=== PATIENT | female | born 2000 | race Hispanic/Latino ===

== ENCOUNTER 2020-08-02 20:57 | Day surgery (SDC) | payer OTHER ==
[2020-08-02 21:24] VITALS: BMI 28.3
[2020-08-02] MEDS ORDERED: hydrALAZINE 20 MG/ML VIAL SLOW IVP PRN ×2 (21:50→21:51)
--- NOTE | 2020-08-02 21:53 | PDOC.FPROB ---
FMR OB H&P: HPI - History of Present Illness Chief Complaint: CTX Indentification: 20yo [id number] at 39.5wks History of Present Illness: 20yo [id number] at 39.5wks presents for contractions that started this morning. Have become more intense and closer together which is why she came in. Endorses scant amt of spotting. Denies LOF, vision changes, edema, PALENCIA. Also reports decreased movement from her normal. Reports dysuria. Has only had 2 bottles of water today. Primary Care Physician: Dr Jade FMR OB H&P: Current - Care : 2 Para: 0010 Gestational age: 39.5wks Due date: 08/04/20 Course/Complications: Denies - OB Labs Blood type: O RH: positive Antibody Screen: negative HIV: negative RPR: negative HepBsAg: negative Rubella: non-immune Urine drug screen: not done 1 hour gtt: 138 GBS: negative FMR OB H&P: History - Past Medical History PMH: Unremarkable - OB History OB History: SAB at 8wks - [employer] History [employer] History: Denies - Surgical History Sx History: Denies - Social History Social History: Denies tobacco, alcohol or drug use. - Family History Family History: Noncontributory FMR OB H&P: Medications - Current Allergies/Adverse Reactions: Allergies Allergy/AdvReac Type Severity Reaction Status Date / Time No Known Allergies Allergy Verified 08/02/20 21:18 FMR OB H&P: ROS - Review of Systems General: denies: fever/chills, fatigue Eyes: denies: vision changes, double vision, scotomas, floaters ENT: denies: nasal congestion, rhinorrhea Cardiovascular: denies: chest pain, edema Respiratory: denies: cough, congestion, shortness of breath Gastrointestinal: denies: nausea, vomiting Genitourinary (Female): reports: dysuria, contractions Musculoskeletal: denies: pain, swelling Neurologic: denies: weakness, headache Integumentary: denies: itching, rash FMR OB H&P: Vital Signs - Heart Tones Baseline: 140 Variability: moderate Acceleration: present Deceleration: absent Category: category 1 M[place]urtain contractions every: 5min FMR OB H&P: Physical Exam - Physical Exam General: NAD, awake, alert and oriented HEENT: normocephalic and atraumatic, conjunctiva clear, grossly normal hearing, oropharynx clear Neck: supple, trachea midline Heart: RRR, no murmurs/rubs/gallops, no edema General: CTAB, no respiratory distress, no rales/rhonchi, no wheezing Abdomen: soft, gravid, non-tender Musculoskeletal: pulses present, no misalignment/asymmetry, no atrophy Neurological: no focal deficit Skin: good tugor, no jaundice Lymphatic: no unusual bruising or bleeding Psychiatric: intact recent and remote memory, good judgement and insight, normal mood and affect - Pelvic Exam Vulva: normal hair distribution, no lesions SVE: /-3 FMR OB H&P: A/P Disposition: 20yo [id number] at 39.5wks presents for contractions sIUP - SVE unchanged from 07/29 /-2 - Reports decreased FM, FHTs reassuring Cat 1. Will check UA via straight cath as she has complaint of dysuria. Encouraged PO hydration. Will also give 1g Tylenol for pain. Rubella non-immune - MMR Discussion: Date/Time: 08/02/202150 This H&P was discussed with Dr. Dias who agrees with the above documentation and plan. Agree. Patient seen. H&P dictated. Meds: vitamins
--- NOTE | 2020-08-02 22:01 | PDOC.BPN ---
- Brief Progress Note OBGYN: NST reviewed. Ordered for decreased FM. Initially reactive now with possible sleep cycle...will follow. If needed we will check BPP. Cath UA ordered for dysuria. CX 2cm at 39 weeks See H&P from Terrance, and my dictated report
[2020-08-02] MEDS ORDERED: Acetaminophen 500 MG TAB PO SCH (22:15)
[2020-08-02 22:18] LABS: Bacteria/HPF None Seen HPF (None Seen); Bilirubin Negative (Negative); Blood, Urine Negative (Negative); Clarity Clear (Clear); Glucose, Urine (Dipstick) Normal (Negative); Ketone, Urine Negative (Negative); Leukocyte Negative Leu/uL (Negative); Nitrite Negative (Negative); Protein, Urine (Dipstick) 10 mg/dL (Neg-Trace); RBC/HPF 0-3 HPF (0-3); Specific Gravity, Urine 1.024 (1.002-1.036); Squamous Epithelial 0-3 HPF (0-3); WBC/HPF 0-3 HPF (0-3)
[2020-08-02 22:19] LABS: Urine Culture Reflex No No
--- NOTE | 2020-08-02 22:33 | HP ---
TIME OF EVALUATION: Roughly, 2139. It is 2155 now. LOCATION: Labor Delivery Triage B. Patient of Dr. Jade. CHIEF COMPLAINT: 1. Painful urination. 2. Decreased movement. 3. Possible contractions. HISTORY OF PRESENT ILLNESS: This is a 20-year-old G1 who is at 39 weeks and 5 days with irregular contractions. She was seen in Labor and Delivery on Wednesday earlier this week and was 2 cm. She denies vaginal bleeding or leakage of fluid. She also states some possible burning on urination, but denies any fevers, frequency, or chills. She had some decreased movement, but is moving now since arrival. She has no vaginal bleeding or leakage of fluid. She denies any other sick contacts or issues. REVIEW OF SYSTEMS: Complete review of systems was checked and is otherwise negative unless specified in the HPI. GENERAL: She denies fever, trauma, or shortness of breath. RESPIRATORY: No cough. No shortness of breath. CHEST: No chest pain. GI: No constipation or diarrhea. : Possible burning on urination, OB: Good movement, but it had been decreased recently, now better. EXTREMITIES: No abnormal loss of sensation or strength. PAST MEDICAL HISTORY: None. SURGICAL HISTORY: Noncontributory. ALLERGIES: NONE. SOCIAL HISTORY: Negative for alcohol, tobacco, and drug use. MEDICATION: Includes vitamins. PHYSICAL EXAMINATION: GENERAL: She is in no acute distress, and she is alert and oriented. VITAL SIGNS: Stable and she is afebrile. Her blood pressure is 111/71, heart rate of 99, respirations 16, temperature is 98.2. ABDOMEN: Soft and nontender. On perineal inspection, no gross evidence of bleeding or no gross evidence of ruptured membranes. Cervical exam is 2 cm dilation, 50% effacement, -3 station. Bag of water is intact. On external monitor, heart tones were reviewed on the nonstress test. Nonstress test shows heart rate around 140s to 150s with moderate variability and no pathological decelerations. There are some contractions on tocodynamometer, but they are irregular about every 3 to 5 minutes or so. She did have better accelerations when she first arrived, and now the baby is probably undergoing a sleep cycle because there is some decreased variability. Overall, it was reassuring on first arrival and now possibly a sleep cycle. We will continue to monitor. LABORATORY DATA: Labs ordered. We have ordered a cath urine analysis. ASSESSMENT: This is a 20-year-old, G1, P0, at 39 weeks and 5 days with possible latent labor, possible urinary tract infection, some decreased movement. PLAN: 1. The nonstress test was initially reactive. It now looks like a sleep cycle, so we will continue to follow. If the NST becomes more indeterminate with decrease in accelerations, we may continue the evaluation with a biophysical profile. For now, we will hold off to see what the strip looks like. 2. I have ordered a cath UA. 3. We will do 2-hour obs to see if she changes her cervix. 4. If there is no evidence of acute maternal compromise or of active labor, we will send the patient home to follow up no later than Wednesday for recheck. Job ID: [id number]
--- NOTE | 2020-08-02 23:18 | PDOC.BPN ---
- Brief Progress Note Dispo: UA is clear. If no CX change, we can send her home as Vitals wnl and NST reactive
== END 2020-08-02 23:41 | disposition home or self-care (01) ==
LOC: L&D/OP 20:57
PROVIDERS: ATTEND Family Medicine
DX: O47.1 False labor at or after 37 completed weeks of gestation (principal); O36.8130 Decreased fetal movements, third trimester, not applicable or unspecified; O99.891 Other specified diseases and conditions complicating pregnancy; R30.0 Dysuria; O26.853 Spotting complicating pregnancy, third trimester; Z3A.39 39 weeks gestation of pregnancy
CPT/HCPCS: 81001; 99283

== ENCOUNTER 2020-08-03 09:02 | Inpatient (IN) | payer OTHER ==
[2020-08-03 09:30] VITALS: BMI 28.3
[2020-08-03] MEDS ORDERED: Ondansetron PF 4 MG/2 ML Vial IVP PRN ×4 (09:45→16:03)
[2020-08-03] MEDS ORDERED: Lidocaine 1% (PF) 30 ML VIAL SC PRN (09:45)
[2020-08-03] MEDS ORDERED: NS w/ Oxytocin 10 units 500 ML IV SCH (09:45)
[2020-08-03] MEDS ORDERED: NS / Oxytocin 40 units/1000ml 1,000 ML IV PRN (09:45)
[2020-08-03] MEDS ORDERED: hydrALAZINE 20 MG/ML VIAL SLOW IVP PRN (09:45)
[2020-08-03] MEDS ORDERED: Promethazine HCl 25 MG/ML VIAL IM PRN ×4 (09:45→16:03)
[2020-08-03] MEDS ORDERED: Acetaminophen 500 MG TAB PO PRN (09:51)
[2020-08-03] MEDS ORDERED: Butorphanol Tartrate 1 MG/ML VIAL SLOW IVP PRN (09:51)
[2020-08-03] MEDS ORDERED: DISCONTINUE ALL PREVIOUS NARCOTICS FS SCH (10:30)
[2020-08-03] MEDS ORDERED: Bupivacaine 0.5% 20 ML, fentaNYL Citrate/PF 400 MCG in Sodium Chloride 0.9% 72 ML EPIDURAL SCH (10:30)
[2020-08-03 10:47] LABS: Hemoglobin 11.6 g/dL (12.0-16.0); Mean Corpuscular HGB CONC 33.1 g/dL (32.0-36.0); Mean Corpuscular Hemoglobin 27.8 pg (27.0-31.0); Mean Platelet Volume 10.9 fL (7.4-10.4); Platelet Count 145 thou/uL (130-400); RBC Distribution Width 17.6 % (11.5-14.5); Red Blood Cell (RBC) Count 4.19 mill/uL (4.20-5.40); White Blood Cell (WBC) Count 9.7 thou/uL (4.8-10.8)
[2020-08-03 11:25] LABS: Syphilis Antibody Nonreactive (Nonreactive); Syphilis Antibody Index 0.05 S/CO (<1.00 Non-Reactive)
[2020-08-03 11:26] LABS: HBSAg Index 0.18 S/CO (0-0.99); Hep B Surf Ag Non-Reactive S/CO (NonReactive)
[2020-08-03] MEDS ORDERED: diphenhydrAMINE 50 MG/ML VIAL IVP PRN ×2 (12:31→12:37)
[2020-08-03] MEDS ORDERED: Acetaminophen 325 MG TAB PO PRN ×2 (12:31→12:36)
[2020-08-03] MEDS ORDERED: ePHEDrine 50 MG/ML VIAL SLOW IVP PRN ×2 (12:31→12:37)
[2020-08-03] MEDS ORDERED: Naloxone HCl 0.4 mg/ml Vial IVP PRN ×4 (12:31→12:37)
[2020-08-03] MEDS ORDERED: Lactated Ringer's 500 ML IV PRN ×2 (12:31→12:37)
[2020-08-03] MEDS ORDERED: Communication Order-Pharmacy FS SCH ×2 (12:45)
[2020-08-03] MEDS ORDERED: Fentanyl 4 mcg/Bupivacaine 0.1% Cassette 100 ML EPIDURAL SCH ×2 (12:45)
[2020-08-03] MEDS: NS / Oxytocin 40 units/1000ml 1,000 ML ONE ×2 (14:45→16:16)
[2020-08-03] MEDS ORDERED: NS / Oxytocin 40 units/1000ml 1,000 ML IV SCH (16:03)
[2020-08-03] MEDS ORDERED: diphenhydrAMINE 25 MG CAP PO PRN (16:03)
[2020-08-03] MEDS ORDERED: Bisacodyl 10 MG SUPP PR PRN (16:03)
[2020-08-03] MEDS ORDERED: Lanolin Ointment 7 GM TUBE TOP PRN (16:03)
[2020-08-03] MEDS ORDERED: HYDROcodone/Acetaminophen 5/325 mg Tablet PO PRN (16:03)
[2020-08-03] MEDS ORDERED: Milk Of Magnesia 30 ML UDCUP PO PRN (16:03)
[2020-08-03] MEDS ORDERED: Benzocaine-Menthol 82.5 ML CAN TOP PRN (16:03)
[2020-08-03] MEDS ORDERED: Ferrous Sulfate 325 MG TAB PO SCH (18:30)
[2020-08-03] MEDS: HYDROcodone/Acetaminophen 5/325 mg Tablet PO PRN (18:55)
[2020-08-03] MEDS: hydrALAZINE 20 MG/ML VIAL SLOW IVP SCH (18:56)
[2020-08-03] MEDS: Docusate Calcium (SURFAK) 240 MG CAP PO SCH (20:52)
[2020-08-03] MEDS: Ibuprofen 800 MG TAB PO SCH (20:52)
[2020-08-04] MEDS: Ibuprofen 800 MG TAB PO SCH ×3 (04:37→21:04)
[2020-08-04] MEDS: HYDROcodone/Acetaminophen 5/325 mg Tablet PO PRN (04:39)
[2020-08-04] MEDS: Ferrous Sulfate 325 MG TAB PO SCH ×2 (08:04→14:51)
[2020-08-04] MEDS ORDERED: Adacel (T-DAP) 0.5 ML SYRINGE IM ONE (09:00)
[2020-08-04] MEDS: Prenatal Vitamin 1 TAB PO SCH (09:18)
[2020-08-04] MEDS: Docusate Calcium (SURFAK) 240 MG CAP PO SCH ×2 (09:18→21:04)
[2020-08-05] MEDS: Ibuprofen 800 MG TAB PO SCH ×2 (06:16→14:09)
[2020-08-05] MEDS: Ferrous Sulfate 325 MG TAB PO SCH (07:36)
[2020-08-05 08:14] VITALS: BP 110/60; TEMP 98.4
[2020-08-05] MEDS: Docusate Calcium (SURFAK) 240 MG CAP PO SCH (08:41)
[2020-08-05] MEDS: Prenatal Vitamin 1 TAB PO SCH (08:41)
[2020-08-05] MEDS ORDERED: Measles/Mumps/Rubella 10 MCG/0.5 ML VIAL SC ONE (14:00)
== END 2020-08-05 15:40 | disposition home or self-care (01) | DRG 807 ==
LOC: L&D/OP 09:02 → L&D 10:18 → 3SW 16:54
PROVIDERS: ADMIT Family Medicine; ATTEND Family Medicine
PROC: 10E0XZZ Delivery of Products of Conception, External Approach (ICD-10-PCS; principal; 2020-08-03)
PROC: 0KQM0ZZ Repair Perineum Muscle, Open Approach (ICD-10-PCS; 2020-08-03)
DX: O70.1 Second degree perineal laceration during delivery (principal); Z37.0 Single live birth; Z3A.39 39 weeks gestation of pregnancy; Z23 Encounter for immunization; Z20.828 Contact with and (suspected) exposure to other viral communicable diseases
CPT/HCPCS: 36415; 51702; 85027; 86780; 86850; 86900; 86901; 87340; 90707; 99285; J3010; J3490